=== PATIENT | female | born 1965 | race African-American/Black ===

== ENCOUNTER 2016-11-01 19:02 | Emergency (ER) | payer OTHER ==
[~2016-11-01] VITALS: Ht 165.1 cm; Wt 101.2 kg
[2016-11-01] MEDS ORDERED: VITAMIN D1000 UNI1 PO (19:26)
[2016-11-01] MEDS ORDERED: PANTOPRAZOLE SO40 M1 PO (19:27)
[2016-11-01] MEDS ORDERED: BENTYL 20 MG TA20 M1 PO (19:27)
[2016-11-01] MEDS ORDERED: KEPPRA 500 MG500 M1 PO (19:28)
[2016-11-01] MEDS ORDERED: GLIPIZIDE 10 MG10 MG PO (19:28)
[2016-11-01] MEDS ORDERED: ESCITALOPRAM OX20 MG PO (19:28)
[2016-11-01] MEDS ORDERED: HYDRALAZINE 2525 M1 PO (19:28)
[2016-11-01] MEDS ORDERED: COREG25 MG PO (19:29)
[2016-11-01] MEDS ORDERED: LINZESS72 MCG PO (19:30)
[2016-11-01] MEDS ORDERED: PAMELOR25 MG PO (19:30)
[2016-11-01] MEDS ORDERED: LISINOPRIL20 MG PO (19:31)
[2016-11-01] MEDS ORDERED: OXYCONTIN40 MG PO (19:31)
[2016-11-01] MEDS ORDERED: OXYCODONE HCL15 MG PO (19:32)
[2016-11-01 20:17] LABS: BASOPHILS 0.7 % (0.0-2.0); EOSINOPHILS 0.7 % (0.0-3.0); HEMATOCRIT 38.4 % (37.0-47.0); HEMOGLOBIN 13.1 gm/dL (12.0-15.0); LYMPHOCYTES 14.2 % (24.0-44.0); MCH 28.3 pg (26.0-34.0); MCHC 34.2 g/dL (28.0-37.0); MCV 82.9 fL (80.0-100.0); MONOCYTES 3.8 % (1.0-8.0); PLATELET COUNT 387 thou/uL (150-400); POLYS 80.6 % (36.0-66.0); RBC 4.63 mil/uL (4.20-5.00); RDW 14.4 % (10.5-14.5); WBC 9.9 thou/uL (4.0-11.0)
[2016-11-01 20:22] LABS: MANUAL DIFF NO
[2016-11-01 20:28] LABS: CALCIUM 9.6 mg/dL (8.5-10.1); CREATININE 0.7 mg/dL (0.6-1.0); POTASSIUM 3.7 mmol/L (3.5-5.1)
[2016-11-01 20:33] LABS: ALBUMIN 4.2 g/dL (3.4-5.0); TOTAL BILIRUBIN 0.3 mg/dL (<0.1-1.0); TOTAL PROTEIN 7.8 g/dL (6.4-8.2)
[2016-11-01] MEDS ORDERED: ZOFRAN ODT8 MG PO (22:11)
[2016-11-01 23:11] LABS: URINE BILIRUBIN NEGATIVE (Negative); URINE BLOOD NEGATIVE (Negative); URINE COLOR YELLOW; URINE GLUCOSE-RANDOM* NEGATIVE (Negative); URINE KETONES 1+ (Negative); URINE LEUKOCYTES-REFLEX 1+ (Negative); URINE PROTEIN (DIPSTICK) NEGATIVE (Negative); URINE UROBILINOGEN 0.2 E.U./dl (0.2-1.0)
[2016-11-01 23:19] LABS: CASTS None Seen /LPF (None Seen); CRYSTALS None Seen /LPF (None Seen); SQUAMOUS 0-3 Few /LPF (0-3); URINE RBC None Seen /HPF (0-2); URINE WBC-REFLEX 0-5 Rare /HPF (0-5)
[2016-11-02 01:21] VITALS: BP 153/92
== END 2016-11-02 01:32 | disposition home or self-care (01) ==
LOC: ER 19:02
PROVIDERS: Emergency Medicine
DX: R11.2 Nausea with vomiting, unspecified (principal); R19.7 Diarrhea, unspecified; R10.13 Epigastric pain; F17.210 Nicotine dependence, cigarettes, uncomplicated; F10.99 Alcohol use, unspecified with unspecified alcohol-induced disorder; F12.10 Cannabis abuse, uncomplicated